=== PATIENT | female | born 2000 | race Caucasian/White ===

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

== ENCOUNTER → 2021-03-06 | Outpatient (CLI) | payer BC ==
[~2021-03-06] MED LIST changes: +NORG1TAB37 PO; -TRI-1TAB5 PO
[2021-03-06 16:21] LABS: C REACTIVE PROTEIN QUANTITATIV 0.36 MG/DL (0.00-0.30); RHEUMATOID FACTOR QUANT < 10.0 IU/ML (<15.0)
[2021-03-06 16:36] LABS: TOTAL 25(OH) VITAMIN D 24.4 NG/ML (30.0-100.0)
== END ==
LOC: M PLALAB 13:41
PROVIDERS: ATTEND Family Medicine
DX: M25.562 Pain in left knee (principal)

== ENCOUNTER → 2021-03-24 | Outpatient (CLI) | payer BC ==
--- NOTE | 2021-03-24 13:38 | REP ---
INDICATION: PAIN IN RIGHT HIP. COMPARISON: None TECHNIQUE: AP and frog-lateral views FINDINGS: The hip joint space is symmetric and relatively well maintained. There is no acute fracture, dislocation, or subluxation. There is no buttressing. IMPRESSION: Within normal limits <Electronically signed by Sameer Jimenez > 03/24/21 [id number]
--- NOTE | 2021-03-24 15:15 | REP ---
INDICATION: Pain in left knee COMPARISON: None. TECHNIQUE: AP, lateral, bilateral oblique and sunrise views of the left knee were obtained. FINDINGS: Multiple views of the left knee demonstrate no evidence of fracture or dislocation. There are no joint space abnormalities. There is no knee joint effusion. The periarticular soft tissues are normal. IMPRESSION: Normal left knee. <Electronically signed by Oliver Ruano > 03/24/21 [id number]
== END ==
LOC: M RAD 12:37
PROVIDERS: ATTEND Family Medicine
DX: M25.551 Pain in right hip (principal)

== ENCOUNTER 2021-07-13 13:58 | Emergency (ER) | payer BC ==
[~2021-07-13] VITALS: Ht 157.5 cm; Wt 77.1 kg
[2021-07-13 13:58] VITALS: BP 126/78
--- OUTSIDE RECORDS SUMMARY | 2021-07-13 20:34 | CCD ---
Author Author [facility] Organization [facility] Address Unknown Phone Unavailable Care Team Providers Care Bench Patternmaker Metal Name Role Phone MELLO-NORMA, AURELIANO DO Unavailable Unavailable MELLO-NORMA, AURELIANO DO Unavailable Unavailable MELLO-NORMA, AURELIANO DO Unavailable Unavailable MELLO-NORMA, AURELIANO DO Unavailable Unavailable MELLO-NORMA, AURELIANO DO Unavailable Unavailable MELLO-NORMA, AURELIANO DO Unavailable Unavailable MELLO-NORMA, AURELIANO DO Unavailable Unavailable MELLO-NORMA, AURELIANO DO Unavailable Unavailable MELLO-NORMA, AURELIANO DO Unavailable Unavailable MLELO-NORMA, AURELIANO DO Unavailable Unavailable MELLO-NORMA, AURELIANO DO Unavailable Unavailable MELLO-NORMA, AURELIANO DO Unavailable Unavailable MELLO-NORMA, AURELIANO DO Unavailable Unavailable MELLO-NORMA, AURELIANO DO Unavailable Unavailable MELLO-NORMA, AURELIANO DO Unavailable Unavailable MELLO-NORMA, AURELIANO DO Unavailable Unavailable MELLO-NORMA, AURELIANO DO Unavailable Unavailable MELLO-NORMA, AURELIANO DO Unavailable Unavailable MELLO-NORMA, AURELIANO DO Unavailable Unavailable MELLO-NORMA, AURELIANO DO Unavailable Unavailable MELLO-NORMA, AURELIANO DO Unavailable Unavailable MELLO-NORMA, AURELIANO DO Unavailable Unavailable MELLO-NORMA, AURELIANO DO Unavailable Unavailable MELLO-NORMA, AURELIANO DO Unavailable Unavailable MELLO-NORMA, AURELIANO DO Unavailable Unavailable MELLO-NORMA, AURELIANO DO Unavailable Unavailable MELLO-NORMA, AURELIANO DO Unavailable Unavailable MELLO-NORMA, AURELIANO DO Unavailable Unavailable MELLO-NORMA, AURELIANO DO Unavailable Unavailable MELLO-NORMA, AURELIANO DO Unavailable Unavailable MELLO-NORMA, AURELIANO DO Unavailable Unavailable MELLO-NORMA, AURELIANO DO Unavailable Unavailable MELLO-NORMA, AURELIANO DO Unavailable Unavailable MELLO-NORMA, AURELIANO DO Unavailable Unavailable MELLO-NORMA, AURELIANO DO Unavailable Unavailable MELLO-NORMA, AURELIANO DO Unavailable Unavailable MELLO-NORMA, AURELIANO DO Unavailable Unavailable MELLO-NORMA, AURELIANO DO Unavailable Unavailable MELLO-NORMA, AURELIANO DO Unavailable Unavailable MELLO-NORMA, AURELIANO DO Unavailable Unavailable MELLO-NORMA, AURELIANO DO Unavailable Unavailable MELLO-NORMA, AURELIANO DO Unavailable Unavailable MELLO-NORMA, AURELIANO DO Unavailable Unavailable MELLO-NORMA, AURELIANO DO Unavailable Unavailable MELLO-NORMA, AURELIANO DO Unavailable Unavailable MELLO-NORMA, AURELIANO DO Unavailable Unavailable MELLO-NORMA, AURELIANO DO Unavailable Unavailable MELLO-NORMA, AURELIANO DO Unavailable Unavailable MELLO-NORMA, AURELIANO DO Unavailable Unavailable MELLO-NORMA, AURELIANO DO Unavailable Unavailable MELLO-NORMA, AURELIANO DO Unavailable Unavailable MELLO-NORMA, AURELIANO DO Unavailable Unavailable MELLO-NORMA, AURELIANO DO Unavailable Unavailable MELLO-NORMA, AURELIANO DO Unavailable Unavailable MELLO-NORMA, AURELIANO DO Unavailable Unavailable MELLO-NORMA, AURELIANO DO Unavailable Unavailable MELLO-NORMA, AURELIANO DO Unavailable Unavailable MELLO-NORMA, AURELIANO DO Unavailable Unavailable MELLO-NORMA, AURELIANO DO Unavailable Unavailable MELLO-NORMA, AURLEIANO DO Unavailable Unavailable MELLO-NORMA, AURELIANO DO Unavailable Unavailable MELLO-NORMA, AURELIANO DO Unavailable Unavailable MELLO-NORMA, AURELIANO DO Unavailable Unavailable MELLO-NORMA, AURELIANO DO Unavailable Unavailable MELLO-NORMA, AURELIANO DO Unavailable Unavailable MELLO-NORMA, AURELIANO DO Unavailable Unavailable MELLO-NORMA, AURELIANO DO Unavailable Unavailable MELLO-NORMA, AURELIANO DO Unavailable Unavailable MELLO-NORMA, AURELIANO DO Unavailable Unavailable MELLO-NORMA, AURELIANO DO Unavailable Unavailable MELLO-NORMA, AURELIANO DO Unavailable Unavailable MELLO-NORMA, AURELIANO DO Unavailable Unavailable MELLO-NORMA, AURELIANO DO Unavailable Unavailable MELLO-NORMA, AURELIANO DO Unavailable Unavailable MELLO-NORMA, AURELIANO DO Unavailable Unavailable MELLO-NORMA, AURELIANO DO Unavailable Unavailable MELLO-NORMA, AURELIANO DO Unavailable Unavailable MELLO-NORMA, AURELIANO DO Unavailable Unavailable MELLO-NORMA, AURELIANO DO Unavailable Unavailable MELLO-NORMA, AURELIANO DO Unavailable Unavailable MELLO-NORMA, AURELIANO DO Unavailable Unavailable MELLO-NORMA, AURELIANO DO Unavailable Unavailable MELLO-NORMA, AURELIANO DO Unavailable Unavailable MELLO-NORMA, AURELIANO DO Unavailable Unavailable IRVIN Darron YIN Unavailable Unavailable Re-disclosure Warning The records that you are about to access may contain information from federally-assisted alcohol or drug abuse programs. If such information is present, then the following federally mandated warning applies: This information has been disclosed to you from records protected by federal confidentiality rules (42 CFR part 2). The federal rules prohibit you from making any further disclosure of this information unless further disclosure is expressly permitted by the written consent of the person to whom it pertains or as otherwise permitted by 42 CFR part 2. A general authorization for the release of medical or other information is NOT sufficient for this purpose. The Federal rules restrict any use of the information to criminally investigate or prosecute any alcohol or drug abuse patient.The records that you are about to access may contain highly sensitive health information, the redisclosure of which is protected by Article 27-F of the [place] Public Health law. If you continue you may have access to information: Regarding HIV / AIDS; Provided by facilities licensed or operated by the [facility] Office of Mental Health; or Provided by the [facility] Office for People With Developmental Disabilities. If such information is present, then the following [facility] mandated warning applies: This information has been disclosed to you from confidential records which are protected by state law. State law prohibits you from making any further disclosure of this information without the specific written consent of the person to whom it pertains, or as otherwise permitted by law. Any unauthorized further disclosure in violation of state law may result in a fine or mcc sentence or both. A general authorization for the release of medical or other information is NOT sufficient authorization for further disc losure. Family History Family Member Name Family Member Gender Family Member Status Date o f Status Description Data Source(s) Unknown Male Problem [facility] ([facility]) Encounters Encounter Providers Location Date Indications Data Source(s ) Outpatient Attender: AURELIANO SAMANO [facility] 03/27/2021 10:00:00 AM EDT [facility] ([facility]) Outpatient Attender: AURELIANO SAMANO [facility] 03/06/2021 10:40:00 AM EDT [facility] ([facility]) Outpatient Attender: ANNAMARIA BRYAN 2019 12:00:00 AM [facility] 07/07/2020 12:00:00 AM [facility] Immunizations Vaccine Date Status Description Data Source(s) COVID-19 VACCINE Pfizer 05/14/2021 12:00:00 AM EDT completed [facility] Vaccine Series Complete: YESThis Data wa s Submitted to [facility] Via [employer] COVID-19 VACC, MRNA(PFIZER)/PF 04/23/2021 12:00:00 AM EDT completed [facility] COVID-19 VACCINE Pfizer 04/23/2021 12:00:00 AM EDT completed [facility] Vaccine Series Complete: NOThis Data was Submitted to [facility] [employer] Medications Medication Brand Name Start Date Product Form Dose Route Admi nistrative Instructions Pharmacy Instructions Status Indications Reaction Description Data Source(s) Cholecalciferol 2000 UNT Oral Capsule Vitamin D3 03/27/2021 12:00:00 AM EDT ORAL active [facility] ([facility]) Insurance Providers Payer name Policy type / Coverage type Policy ID Covered constitution party ID Covered constitution party's relationship to bullock Policy Bullock Plan Information [facility] P [id number] PARENT [id number] [place] [employer] [place] 302/[id number] FA2 [id number] BCBS [employer] [id number] FA2 [id number] [place] [place]/[id number] [id number] BCBS [place] P[place] 302/[id number] FA2 [id number] [employer]BS P [id number] C TNY [id number] [facility] [employer] [id number] Family Dependent [id number] [employer] [id number] Family Dependent TNY [id number] [employer] [id number] Family Dependent TNY [id number] [facility] [employer] [id number] Family Dependent TNY [id number] Problems, Conditions, and Diagnoses No Information Surgeries/Procedures Procedure Description Date Indications Data Source(s) PERIODIC PREVENTIVE MED EST PATIENT 18-39 YRS 03/27/20 12:00:00 AM EDT [facility] ([facility]) SPMTRY W/VC EXPIRATORY DARCIE +-MXML VOL VNTJ 03/06/2021 12:00:00 AM EDT [facility] ([facility]) OFFICE OUTPATIENT VISIT 25 MINUTES 03/06/2021 12:00:00 AM EDT [facility] ([facility]) Results ID Date Data Source [id number] 05/16/2021 01:13:00 PM EDT [facility] Name Value Range Interpretation Code Description Data Yessy rce(s) Supporting Document(s) SARS coronavirus 2 RdRp gene Covid_negative [facility] This lab was ordered by [facility] and reported by [facility]. ID Date Data Source [id number] 05/09/2021 02:44:00 PM EDT [facility] Name Value Range Interpretation Code Description Data Yessy rce(s) Supporting Document(s) SARS coronavirus 2 RdRp gene Covid_negative [facility] This lab was ordered by [facility] and reported by [facility]. ID Date Data Source [id number] 05/02/2021 12:00:00 AM EDT [facility] Name Value Range Interpretation Code Description Data Yessy rce(s) Supporting Document(s) SARS-CoV2 Rapid Antigen Negative [facility] This lab was reported by [facility]. ID Date Data Source [id number] 03/06/2021 04:39:00 PM EDT [facility] ([facility]) Name Value Range Interpretation Code Description Data Yessy rce(s) Supporting Document(s) Calcidiol [Mass/volume] in Serum or Plasma 24.4 ng/mL 30.0- 100.0 Below low normal [facility]) Rheumatoid factor [Units/volume] in Serum or Plasma Laboratory t est result Normal (applies to non-numeric results) [facility] ([facility]) ID Date Data Source [id number] 03/06/2021 04:39:00 PM EDT [facility] ([facility]) Name Value Range Interpretation Code Description Data Yessy rce(s) Supporting Document(s) Lyme Disease IgG/IgM Antibodie Laboratory test result 0.00-0.90 Normal (applies to non-numeric results) [facility] ([facility]) <content>Negative <0.91</content >
<content>Equivocal 0.91 - 1.09</content>
<content>Positive >1.09</content>
<content></content> Lyme Disease IgM Ab Quantitati Laboratory test result 0.00-0.79 Normal (applies to non-numeric results) [facility] ([facility]) <content>Negative <0.80</content >
<content>Equivocal 0.80 - 1.19</content>
<content>Positive >1.19</content>
<content>.</content>
<content>IgM levels may peak at 3-6 weeks post infection, then</content>
<content>gradually decline.</content>
<content></content> ID Date Data Source [id number] 03/06/2021 04:39:00 PM EDT [facility] ([facility]) Name Value Range Interpretation Code Description Data Yessy rce(s) Supporting Document(s) Cyclic citrullinated peptide IgG Ab [Units/volume] in Serum or Plasma 4 units 0-19 Normal (applies to non-numeric results) [facility] ([facility]) <content>Negative <20</con tent>
<content>Weak positive 20 - 39</content>
<content>Moderate positive 40 - 59</content>
<content>Strong positive >59</content>
<content></content> C reactive protein [Mass/volume] in Serum or Plasma by High sensitivity method 0.36 mg/dL 0.00-0.30 Above high normal [facility] ([facility]) Erythrocyte sedimentation rate by Westergren method 13 mm/hr 0-20 Normal (applies to non-numeric results) [facility]) ID Date Data Source [id number] 03/06/2021 04:39:00 PM EDT [facility] ([facility]) Name Value Range Interpretation Code Description Data Yessy rce(s) Supporting Document(s) Antinuclear Antibodies Direct Laboratory test result Normal (applies to non- numeric results) [facility] ([facility]) Performed at: - [facility] [address] [id number] Air Conditioning Coil Assembler: Dede Breaux MD, Phone: [phone] Performed at: - [facility] [address] [id number] Air Conditioning Coil Assembler: Randi Zurita MD, Phone: [phone] ID Date Data Source [id number] 03/06/2021 11:02:00 AM EDT [facility] ([facility]) Name Value Range Interpretation Code Description Data Yessy rce(s) Supporting Document(s) Laboratory test finding (navigational concept) Laboratory test result [facility] ([facility]) ID Date Data Source [id number] 07/08/2020 08:28:27 PM [facility] Name Value Range Interpretation Code Description Data Yessy rce(s) Supporting Document(s) Specimen source [Identifier] of Unspecified specimen [facility] SARS-CoV-2 RNA (specific gene not known or reporting a single result based on a combination of tests) 2018 nCoV Real-Time RT-PCR: NEGATIVE [facility] Assay Performed [facility] This test method was designed to detect the causative agent of COVID-19. It was developed and its performance characteristics were determined by the Dept. of Pathology, [facility]. It has been approved by the [facility] Department of Health but has not been authorized by the [place] Food and Drug Administration. Negative results do not preclude SARS-CoV-2 infection and should not be used as the sole basis for patient management decisions. Patients first test for [facility] Patient employed in healthcare setting [facility] Patient has symptoms related to [facility] When did you start to experience these symptoms [Date and time] [Phen X] [facility] Patient was hospitalized because of this condition [facility] patient was admitted to ICU for [facility] Patient resides in a congregate care setting [facility] status [facility] ID Date Data Source [id number] 07/06/2020 02:28:00 PM [facility] Name Value Range Interpretation Code Description Data Yessy rce(s) Supporting Document(s) SARS-CoV-2 RNA (specific gene not known or reporting a single result based on a combination of tests [facility] This lab was ordered by [facility] and reported by [facility]. Procedure Social History Code Duration Value Status Description Data Source(s ) Smoking 03/27/2021 12:00:00 AM EDT Patient has never smoked co mpleted Patient has never smoked [facility]) Vital Signs ID Date Data Source UNK Name Value Range Interpretation Code Description Data Source(s) Systolic blood pressure 114 mm[Hg] 114 mm[Hg] M [facility] ([facility]) Diastolic blood pressure 68 mm[Hg] 68 mm[Hg] [facility] ([facility]) Body height 62 [in_i] 62 [in_i] [facility] ([facility]) 5'2" Body weight 167.50 [lb_av] 167.50 [lb_av] [facility] ([facility]) Body mass index (BMI) [Ratio] 30.6 kg/m2 30.6 k g/m2 [facility] ([facility]) Heart rate 102 /min 102 /min [facility] ([facility]) Respiratory rate 18 /min 18 /min [facility] ( [facility]) Body temperature 98.4 [degF] 98.4 [degF] [facility] ([facility]) Oxygen saturation in Arterial blood by Pulse oximetry 98 % 98 % [facility] ([facility]) [place] body weight 110 [lb_av] 110 [lb_av] [facility] ([facility]) Systolic blood pressure 124 mm[Hg] 124 mm[Hg] M [facility] ([facility]) Diastolic blood pressure 64 mm[Hg] 64 mm[Hg] [facility] ([facility]) Body height 62 [in_i] 62 [in_i] [facility] ([facility]) 5'2" Body weight 170.50 [lb_av] 170.50 [lb_av] [facility] ([facility]) Body mass index (BMI) [Ratio] 31.2 kg/m2 31.2 k g/m2 [facility] ([facility]) Heart rate 97 /min 97 /min [facility] ([facility]) Respiratory rate 18 /min 18 /min [facility] ( [facility]) Body temperature 98.3 [degF] 98.3 [degF] [facility] ([facility]) Oxygen saturation in Arterial blood by Pulse oximetry 99 % 99 % [facility] ([facility]) [place] body weight 110 [lb_av] 110 [lb_av] [facility] ([facility])
--- OUTSIDE RECORDS SUMMARY | 2021-07-13 20:34 | CCD | Continuity of Care Document ---
Author Author [facility]la [facility] Organization Unknown Address [address] [place] [address] Phone [phone] Care Team Providers Care Wiper Blender Name Role Phone YonyLena Anthony Darron DO AUTM Problems Description No Information Available Social History Type Date Description Comments Sex Unknown Allergies, Adverse Reactions, Alerts Description No Information Available Medications Description No Information Available Immunizations Description No Information Available Vital Signs Description No Information Available Results Description No Information Available Procedures Description No Information Available Medical Devices Description No Information Available Encounters Description No Information Available Assessments Date Code Description Provider 05/02/2021 Z20.828 Contact with and (caldwell spected) exposure to other viral communicable diseases JUAN JOSE Clancy 04/28/2021 Z20.828 Contact with and (caldwell spected) exposure to other viral communicable diseases JUAN JOSE Clancy Plan of Treatment No Information Available Functional Status Description No Information Available Mental Status Description No Information Available Referrals Description No Information Available
--- OUTSIDE RECORDS SUMMARY | 2021-07-13 20:34 | CCD | Continuity of Care Document ---
Author Author [facility]la [facility] Organization Unknown Address [address] [place] [address] [place] [address] Phone [phone] Care Team Providers Care Pega Developer Name Role Phone Lena Hernandes DO AUTM [phone] Problems Description No Information Available Social History Type Date Description Comments Sex Unknown Allergies, Adverse Reactions, Alerts Description No Information Available Medications Description No Information Available Immunizations Description No Information Available Vital Signs Description No Information Available Results Description No Information Available Procedures Description No Information Available Medical Devices Description No Information Available Encounters Description No Information Available Assessments Description No Information Available Plan of Treatment No Information Available Functional Status Description No Information Available Mental Status Description No Information Available Referrals Description No Information Available
--- OUTSIDE RECORDS SUMMARY | 2021-07-13 20:34 | CCD | Continuity of Care Document ---
Author Author Karla [facility] Organization Unknown Address [address] [place] [address] Phone [phone] Care Team Providers Care First Line Supervisor Name Role Phone YonyLena Anthony Darron DO [...] Information Available Assessments Date Code Description Provider 04/28/2021 Z20.828 Contact with and (caldwell spected) exposure to other viral communicable diseases JUAN JOSE Clancy Plan of Treatment No Information Available Functional Status Description No Information Available Mental Status Description No Information Available Referrals Description No Information Available
--- OUTSIDE RECORDS SUMMARY | 2021-07-13 20:34 | CCD | Continuity of Care Document ---
Author Author Karla MACHUCA Organization Unknown Address [address] [place] [id number] Phone [phone] Care Team Providers [employer] Supervisor Name Role Phone YonyLena Anthony Darron [...]
== END 2021-07-13 20:38 | disposition left against medical advice (07) ==
LOC: M ED 13:58
DX: Z53.29 Procedure and treatment not carried out because of patient's decision for other reasons (principal)

== ENCOUNTER → 2021-10-09 | Outpatient (CLI) | payer BC | LOC: M RAD 11:26 | PROVIDERS: ATTEND Family Medicine | DX: N83.202 Unspecified ovarian cyst, left side (principal); N83.201 Unspecified ovarian cyst, right side ==

== ENCOUNTER → 2022-05-21 | Outpatient (REF) | payer BC ==
[2022-05-21 19:45] LABS: GC DNA AMPLIFICATION NEGATIVE (NEGATIVE)
== END ==
LOC: M LAB REF 16:40
PROVIDERS: ATTEND Family Medicine
DX: Z11.3 Encounter for screening for infections with a predominantly sexual mode of transmission (principal)

== ENCOUNTER → 2023-06-26 | Outpatient (CLI) | payer BC | LOC: M PLALAB 09:23 | PROVIDERS: ATTEND Advanced Practice Midwife | DX: L68.0 Hirsutism (principal) ==

== ENCOUNTER → 2023-09-26 | Outpatient (CLI) | payer BC ==
[2023-09-26 14:24] LABS: HEMOGLOBIN A1c 5.1 % (4.0-6.0)
== END ==
LOC: M PLALAB 09:57
PROVIDERS: ATTEND Advanced Practice Midwife
DX: L68.0 Hirsutism (principal)

== ENCOUNTER → 2024-03-13 | Outpatient (CLI) | LOC: M SOG 14:57 | PROVIDERS: ATTEND Physician Assistant | DX: M25.562 Pain in left knee (principal) ==